=== PATIENT | male | born 1990 | race Caucasian/White ===

== ENCOUNTER 2017-02-16 12:36 | Emergency (ER) | payer MEDICAID ==
[2017-02-16] MEDS ORDERED: IBUPROFEN 800 MG TABLET PO ONE (13:36)
--- NOTE | 2017-02-16 13:36 | ER Document Report ---
HPI - HPI Patient complains to provider of: toothache Pain Level: 4 Context: Patient is a 26-year-old male who presents emergency department complaining of mouth pain. Patient states that he has his wisdom teeth removed on Monday and is been taking amoxicillin and Percocet as needed at home. Denies any fevers or chills. He states it hurts to open his mouth all the way but that is able to talk, breathe and tolerate swallowing solids and liquids. Otherwise denies any other sore throat, bleeding, foul drainage. Past Medical History - Social History Smoking Status: Current Every Day Smoker Family History: Reviewed & Not Pertinent GI Medical History: Reports: Hx Crohn's Disease - Immunizations Hx Diphtheria, Pertussis, Tetanus Vaccination: Yes Vertical Provider Document - CONSTITUTIONAL Notes: PHYSICAL EXAM GENERAL: Alert, interacts well. HEAD: Normocephalic, atraumatic. ENT: Stitches present in the area of previous wisdom teeth without any evidence of purulent drainage or bleeding. Patient able to open his mouth to inspect airway. Oral mucosa moist, tongue midline. Uvula midline. Airway patent. No evidence of tonsillar enlargement, peritonsillar abscess NECK: Full range of motion. Supple. Trachea midline. LUNGS: Clear to auscultation bilaterally, no wheezes, rales, or rhonchi. No respiratory distress. HEART: Regular rate and rhythm. No murmurs, gallops, or rubs. NEUROLOGICAL: Alert and oriented x4. Normal speech. PSYCH: Normal affect, normal mood. - INFECTION CONTROL TRAVEL OUTSIDE OF THE [place] IN LAST 30 DAYS: No - RESPIRATORY O2 Sat by Pulse Oximetry: 97 Course - Re-evaluation Re-evalutation: 02/16/17 13:35 Patient is a 26-year-old male who is hemodynamically stable, no acute distress and afebrile. Presentation is consistent with postop pain from dental extraction from 4 wisdom teeth. Discussed patient to continue using ice packs and to start taking Motrin 800 mg 3 times a day for anti-inflammatory and pain management benefits. Patient otherwise to follow-up with dentist next week as scheduled. Patient agrees with plan otherwise discussed strict return precautions. Stable for discharge home - Vital Signs Vital signs: Temp Pulse Resp BP Pulse Ox 98.7 F 78 18 123/75 97 02/16/17 12:38 02/16/17 12:38 02/16/17 12:38 02/16/17 12:38 02/16/17 12:38 Discharge - Discharge Clinical Impression: Post-operative pain, Tooth ache Condition: Good Disposition: HOME, SELF-CARE Additional Instructions: You have been seen for dental pain. It is very important that you follow-up with a dentist for definitive care. Please return if you develop fever greater than 101, swelling in your face, vomiting, difficulty breathing or swallowing, or any other symptoms that are concerning to you. For pain you should take ibuprofen 800 mg every 8 hours as needed. Prescriptions: Ibuprofen [Motrin 800 mg Tablet] 800 mg PO Q8H PRN #30 tab PRN Reason:
[2017-02-16 14:03] VITALS: BP 115/69
== END 2017-02-16 14:03 | disposition home or self-care (01) ==
LOC: ER 12:36
DX: G89.18 Other acute postprocedural pain (principal); K08.9 Disorder of teeth and supporting structures, unspecified; F17.210 Nicotine dependence, cigarettes, uncomplicated
CPT/HCPCS: 99282; J3490

== ENCOUNTER 2018-06-27 21:21 | Emergency (ER) | payer MEDICAID ==
--- NOTE | 2018-06-27 22:21 | ER Document Report ---
ED Medical Screen (RME) - General Chief Complaint: Shortness Of Breath Stated Complaint: DIFFICULTY BREATHING Time Seen by Provider: 06/27/18 22:17 Notes: Patient is otherwise healthy 27-year-old male presents to the emergency department for difficulty breathing and chest tightness. Patient states this chest tightness and difficulty breathing started about a week ago. States he thought it was due to his continued smoking so he quit. Patient states the chest tightness and difficulty breathing has continued despite him quitting smoking. Patient initially says the pain does not change upon deep inspiration or palpation. Then changes his story and states sometimes it hurts more when he takes a deep breath. Patient's denying cough, congestion, fever. GENERAL: Alert, interacts well. No acute distress. LUNGS: Clear to auscultation bilaterally, no wheezes, rales, or rhonchi. No respiratory distress. HEART: Regular rate and rhythm. No murmur chest:No crepitus felt, no erythema or ecchymosis noted anterior posterior chest wall I have greeted and performed a rapid initial assessment of this patient. A comprehensive ED assessment and evaluation of the patient, analysis of test results and completion of the medical decision making process will be conducted by additional ED providers. TRAVEL OUTSIDE OF THE [place] IN LAST 30 DAYS: No - Related Data Allergies/Adverse Reactions: No Known Allergies Allergy (Verified 06/27/18 22:16) Past Medical History Renal/ Medical History: Denies: Hx Peritoneal Dialysis GI Medical History: Reports: Hx Crohn's Disease - Immunizations Hx Diphtheria, Pertussis, Tetanus Vaccination: Yes Physical Exam - Vital signs Vitals: Temp Pulse Resp BP Pulse Ox 97.9 F 63 16 151/81 H 98 06/27/18 21:31 06/27/18 21:31 06/27/18 21:31 06/27/18 21:31 06/27/18 21:31 Course - Vital Signs Vital signs: Temp Pulse Resp BP Pulse Ox 97.9 F 63 16 151/81 H 98 06/27/18 21:31 06/27/18 21:31 06/27/18 21:31 06/27/18 21:31 06/27/18 21:31
--- NOTE | 2018-06-27 22:53 | RADIOLOGY REPORT (SQ) ---
EXAM DESCRIPTION: XR CHEST 2 VIEWS COMPLETED DATE/TME: 06/27/2018 22:18 CLINICAL HISTORY: 27 years, Male, SOB COMPARISON: None. NUMBER OF VIEWS: 2 TECHNIQUE: 2 view chest LIMITATIONS: None. FINDINGS: Heart size normal. Lungs clear. No pneumothorax IMPRESSION: Negative chest copyright 2010 [employer]- All Rights Reserved
[2018-06-27 23:48] LABS: ABSOLUTE EOSINOPHILS # (AUTO) 0.3 10^3/uL (0.0-0.6); ABSOLUTE LYMPHOCYTES (AUTO) 2.8 10^3/uL (0.5-4.7); ABSOLUTE MONOCYTES (AUTO) 0.7 10^3/uL (0.1-1.4); ABSOLUTE NEUT (AUTO) 4.6 10^3/uL (1.7-8.2); BASOPHILS % (AUTO) 0.5 % (0-2); EOSINOPHILS % (AUTO) 3.8 % (0-6); HEMATOCRIT 43.6 % (37.9-51.0); LYMPHOCYTES % (AUTO) 33.3 % (13-45); MEAN CORPUSCULAR HGB CONC 34.5 g/dL (32.0-36.0); MEAN CORPUSCULAR VOLUME 90 fl (80-97); MONOCYTES % (AUTO) 8.3 % (3-13); PLATELET COUNT 227 10^3/uL (150-450); RED BLOOD COUNT 4.85 10^6/uL (4.35-5.55); RED CELL DISTRIBUTION WIDTH 13.3 % (11.5-14.0); SEGMENTED NEUTROPHILS % (AUTO) 54.1 % (42-78); TOTAL CELLS COUNTED % (AUTO) 100 %; WHITE BLOOD COUNT 8.5 10^3/uL (4.0-10.5)
[2018-06-28 00:01] LABS: ALANINE AMINOTRANSFERASE 41 U/L (21-72); ALBUMIN 4.4 g/dL (3.5-5.0); ALKALINE PHOSPHATASE 76 U/L (38-126); ANION GAP 10 (5-19); ASPARTATE AMINO TRANSFERASE 23 U/L (17-59); BILIRUBIN,DIRECT 0.2 mg/dL (0.0-0.4); BILIRUBIN,TOTAL 0.3 mg/dL (0.2-1.3); BLOOD UREA NITROGEN 17 mg/dL (7-20); CALCIUM 9.7 mg/dL (8.4-10.2); CARBON DIOXIDE 29 mmol/L (22-30); CHLORIDE 103 mmol/L (98-107); GLUCOSE 115 mg/dL (75-110); POTASSIUM 4.3 mmol/L (3.6-5.0); SODIUM 142.4 mmol/L (137-145); TOTAL PROTEIN 7.4 g/dL (6.3-8.2)
--- NOTE | 2018-06-28 00:30 | ER Document Report ---
ED General - General Chief Complaint: Shortness Of Breath Stated Complaint: DIFFICULTY BREATHING Time Seen by Provider: 06/27/18 22:17 Primary Care Provider: RADHA BARRIOS MD [Primary Care Provider] - Follow up in 3-5 days PAT EVANS MD [ACTIVE STAFF] - Follow up in 3-5 days Notes: Patient is a pleasant 27-year-old male who presents with complaint of chest pressure. He says feels like a heaviness over his lower substernal region. No abdominal pain. Pain is not made worse by anything. He said the pain is not made worse with exertion, movement, twisting, turning, eating. He says it is just constant. He says is been there for a week. He says he feels as if he cannot get a good breath in. He denies any personal history of coronary disease. He has no chronic medical problems. He is otherwise healthy. TRAVEL OUTSIDE OF THE [place] IN LAST 30 DAYS: No - Related Data Allergies/Adverse Reactions: No Known Allergies Allergy (Verified 06/27/18 22:16) Past Medical History - Social History Smoking Status: Former Smoker Chew tobacco use (# tins/day): No Frequency of alcohol use: None Drug Abuse: None Family History: Reviewed & Not Pertinent Patient has suicidal ideation: No Patient has homicidal ideation: No Renal/ Medical History: Denies: Hx Peritoneal Dialysis GI Medical History: Reports: Hx Crohn's Disease - Immunizations Hx Diphtheria, Pertussis, Tetanus Vaccination: Yes Review of Systems - Review of Systems Notes: My Normal Review Basic REVIEW OF SYSTEMS: CONSTITUTIONAL : Denies fever, chills, or sweats. Denies recent illness. EENT: Denies eye, ear, throat, or mouth pain or symptoms. Denies nasal or sinus congestion. CARDIOVASCULAR: Chest pressure. RESPIRATORY: Feels as if he cannot take in a full breath. GASTROINTESTINAL: Denies abdominal pain. Denies nausea, vomiting, or diarrhea. MUSCULOSKELETAL: Denies neck or back pain or joint pain or swelling. SKIN: Denies rash or skin lesions. NEUROLOGICAL: Denies altered mental status or loss of consciousness. Denies headache. Denies weakness or paralysis or loss of use of either side. Denies problems with gait or speech. Denies sensory or motor loss. ALL OTHER SYSTEMS REVIEWED AND NEGATIVE. Physical Exam - Vital signs Vitals: Temp Pulse Resp BP Pulse Ox 97.9 F 63 16 151/81 H 98 06/27/18 21:31 06/27/18 21:31 06/27/18 21:31 06/27/18 21:31 06/27/18 21:31 - Notes Notes: General Appearance: Well nourished, alert, cooperative, no acute distress, no obvious discomfort. Vitals: reviewed, See vital signs table. Head: no swelling or tenderness to the head Eyes: PERRL, EOMI, Conjuctiva clear Mouth: No decreasd moisture Chest wall: No reproducible tenderness to palpation of chest wall. Lungs: No wheezing, No rales, No rhonci, No accessory muscle use, good air exchange bilaterally. Heart: Normal rate, Regular rythm, No murmur, no rub Abdomen: Normal BS, soft, No rigidity, No abdominal tenderness, No guarding, no rebound, no abdominal masses, no organomegaly Extremities: strength 5/5 in all extremities, good pulses in all extremities, no swelling or tenderness in the extremities, no edema. Skin: warm, dry, appropriate color, no rash Neuro: speech clear, oriented x 3, normal affect, responds appropriately to questions. Course - Re-evaluation Re-evalutation: 06/28/18 01:31 Exact cause of the patient's chest pressure is not clear. He has mild hyperten gina. We will have him keep a log of his blood pressures and have him follow-up with either his primary care doctor or the warehouse receiving supervisor. I informed him that this time he did not see a life-threatening cause of his chest pain. Did not suspect coronary disease as his EKG and troponin are negative and he has a heart score of 1. He has clear lung jason. Chest x-ray is normal. His d-dimer is negative and he is PERC rule negative and therefore I do not suspect PE. At this time I feel he safe to be discharged home. I encouraged him return to ER if he has worsening of symptoms or feels unwell. Patient agrees with plan will be discharged home. Dictation of this chart was performed using voice recognition software; therefore, there may be some unintended grammatical errors. 06/28/18 01:33 - Vital Signs Vital signs: Temp Pulse Resp BP Pulse Ox 97.8 F 57 L 18 111/71 98 06/28/18 01:44 06/28/18 01:44 06/28/18 01:44 06/28/18 01:44 06/28/18 01:44 - Laboratory Result Diagrams: 06/27/18 23:30 06/27/18 23:30 Laboratory results interpreted by me: 06/27/18 23:30 Glucose 115 H - EKG Interpretation by Me Additional EKG results interpreted by me: 06/28/18 00:29 EKG is reviewed and interpreted by me. EKG shows sinus rhythm with a rate of [address] segment elevation or depression. No ischemic T wave inversions. AL interval, QRS duration, QT intervals are within normal range. No old EKG avai lable for comparison. Discharge - Discharge Clinical Impression: Chest pain Qualifiers: Chest pain type: unspecified Qualified Code(s): R07.9 - Chest pain, unspecified Hypertension Qualifiers: Hypertension type: unspecified Qualified Code(s): I10 - Essential (primary) hypertension Condition: Good Disposition: HOME, SELF-CARE Additional Instructions: Currently I do not find any evidence of heart attack on your workup. We did blood testing to look for evidence of blood clots in your lungs. This was also negative. Lung jason are clear and I do not hear any wheezing. I do not know the exact cause as to why you are having this pressure sensation in your chest. I do not see any evidence of a serious or life-threatening cause at this time. We will have you follow-up closely with your primary care doctor. If you are unable to follow-up with your primary care doctor than you can follow-up with the warehouse receiving supervisor, Dr. Evans, for reevaluation. Please return to the ER immediately if you have worsening pain, difficulty breathing, fevers, or feel that you are worsening in any way. Your blood pressure is mildly elevated here. please make a log of your blood pressures for the next week checking it daily and bring this to your follow up appointment. Referrals: RADHA BARRIOS MD [Primary Care Provider] - Follow up in 3-5 days PAT EVANS MD [ACTIVE STAFF] - Follow up in 3-5 days
[2018-06-28 01:47] VITALS: BP 111/71
--- NOTE | 2018-06-28 07:52 | EKG REPORT ---
SEVERITY:- NORMAL ECG - SINUS RHYTHM : Confirmed by: Anson Morris MD 28-Jun-2018 07:52:16
== END 2018-06-28 01:58 | disposition home or self-care (01) ==
LOC: ER 21:21
DX: R07.89 Other chest pain (principal); I10 Essential (primary) hypertension; R06.02 Shortness of breath; Z87.891 Personal history of nicotine dependence
CPT/HCPCS: 36415; 71046; 80053; 84484; 85025; 85379; 93005; 93010; 99285